=== PATIENT | female | born 1960 | race Caucasian/White ===

== ENCOUNTER 2019-05-19 20:28 | Inpatient (IN) | payer OTHER ==
[~2019-05-19] VITALS: Ht 160 cm; Wt 63.0 kg
--- NOTE | ~2019-05-19 | O ---
[facility] [place] [address] OPERATIVE REPORT Name: ALEX CHADWICK Room #: 444-P [facility] ..#: [id number] Admission: 05/19/19 Attend Phys: Denise Juarez MD Discharge: Date of : 58 Report #: [id number] THIS REPORT FOR: //name// CC: Denise Vásquez DATE OF SERVICE: 05/20/2019 PREOPERATIVE DIAGNOSIS: Right shoulder fracture dislocation. POSTOPERATIVE DIAGNOSIS: Right shoulder fracture dislocation. PROCEDURE: Right shoulder closed reduction under anesthesia. SURGEON: Dr. Jesse Zuñiga. FRONT DESK ASSISTANT: Minna Judd. ANESTHESIA: General. ESTIMATED BLOOD LOSS: Zero. DESCRIPTION OF PROCEDURE: The patient was brought to the operating room where she was placed under general anesthesia. Once under adequate general anesthesia, a reduction maneuver was performed on the right shoulder. Abduction and traction was placed on the shoulder. A reduction was then achieved. X-ray verification was used to note the reduction, was satisfactory with a humeral neck fracture and greater trochanteric fracture of the humerus. The patient was having wrist pain as well and wrist x-rays were taken also, which were negative. The patient was taken to recovery room without incident once the procedure was complete after being awoken from anesthesia. By: [id number] Jesse Zuñiga MD /nt
[2019-05-19 20:29] VITALS: BP 154/83
[2019-05-19] MEDS ORDERED: XARELTO10 MG PO (20:43)
[2019-05-19] MEDS ORDERED: INDERAL LA120 M1 PO (20:43)
[2019-05-19] MEDS ORDERED: FOLIC ACID1 MG PO (20:44)
[2019-05-19] MEDS ORDERED: LEVO-T25 MCG PO (20:44)
[2019-05-19 21:49] VITALS: BP 148/93
[2019-05-19 21:50] LABS: ABSOLUTE NEUTROPHILS 2.9 thou/uL (1.4-8.2); BASOPHILS 1.2 % (0.0-2.0); EOSINOPHILS 2.2 % (0.0-3.0); HEMATOCRIT 40.4 % (37.0-47.0); HEMOGLOBIN 13.4 gm/dL (12.0-15.0); MCH 33.6 pg (26.0-34.0); MCV 101.8 fL (80.0-100.0); MONOCYTES 9.5 % (1.0-8.0); PLATELET COUNT 307 thou/uL (150-400); POLYS 41.1 % (36.0-66.0); RBC 3.97 mil/uL (4.20-5.00); RDW 12.7 % (10.5-14.5)
[2019-05-19 21:52] LABS: CALCIUM 9.5 mg/dL (8.5-10.1); CREATININE 0.9 mg/dL (0.6-1.0); POTASSIUM 4.3 mmol/L (3.5-5.1)
[2019-05-19 22:18] VITALS: BP 145/85
[2019-05-19 22:30] VITALS: BP 141/77
--- NOTE | 2019-05-20 02:19 | NUR ---
PT TO UNIT AROUND 2229. ORIENTED TO UNIT, ROOM AND USE OF CALL LIGHT. ADMISSION ASSESSMENT COMPLETED. VSS. PT REPORTS PAIN 10/10 WITH LITTLE RELIEF FROM MEDS. APPEALS MANAGER UP TO SEE PT TONIGHT. ICE PACK APPLIED TO AFFECTED ARM. SCDS AND PROPER ARMBANDS APPLIED. PT VERY ANXIOUS ABOUT SURGERY, BUT VERY PLEASANT WOMAN. RESTING IN BED NOW WITH CALL LIGHT IN REACH.
[2019-05-20 04:10] VITALS: BP 112/67
[2019-05-20 06:18] LABS: HEMATOCRIT 38.9 % (37.0-47.0); HEMOGLOBIN 12.6 gm/dL (12.0-15.0); MCH 33.5 pg (26.0-34.0); MCHC 32.4 g/dL (28.0-37.0); MCV 103.5 fL (80.0-100.0); RBC 3.76 mil/uL (4.20-5.00); RDW 12.8 % (10.5-14.5); WBC 9.5 thou/uL (4.0-11.0)
[2019-05-20 06:26] LABS: INR 1.1; PROTIME 11.2 Seconds (9.3-11.4)
[2019-05-20 06:30] LABS: CALCIUM 8.3 mg/dL (8.5-10.1); CREATININE 0.7 mg/dL (0.6-1.0); POTASSIUM 4.6 mmol/L (3.5-5.1)
[2019-05-20 07:40] VITALS: BP 140/80
[2019-05-20] MEDS ORDERED: ANORO ELLIPTA1 EACH (07:46)
--- NOTE | 2019-05-20 08:55 | HC ---
[facility] [place] [address] CONSULTATION Name: FARRUKHROSEMARY SHARMALY Héctor Room #: 444-P ADM IN M.R.#: [id number] Admission: 05/19/19 Attend Phys: Denise Juarez MD Discharge: Date of : 58 Report #: [id number] THIS REPORT FOR: //name// CC: Denise Vásquez CHIEF COMPLAINT: Right shoulder fracture dislocation. HISTORY OF PRESENT ILLNESS: This is a 58-year-old patient with a history of falling last evening stepping off of her front porch, landing on her right side. She had significant pain in her right shoulder and upper extremity right afterwards and was then brought to the Emergency Room where she was determined to have a right shoulder fracture dislocation. PAST MEDICAL HISTORY: Significant for pulmonary embolism for which she takes Xarelto, Graves' disease, and osteoporosis. ALLERGIES: None. PAST SURGICAL HISTORY: Significant for a parathyroidectomy. SOCIAL HISTORY: Negative for tobacco use. Significant for alcohol use. MEDICATIONS: Please see the MAR in the computer. ALLERGIES: None. PHYSICAL EXAMINATION: VITAL SIGNS: Notes a temperature of 98.3, pulse is 79, respiratory rate is 18. EXTREMITIES: Examination of the right upper extremity notes significant pain with any range of motion through the shoulder. She is neurovascularly intact distally. She has good capillary refill. Motor is grossly intact distally. LABORATORY STUDIES: X-rays note a right shoulder fracture dislocation with a humeral neck fracture and a greater trochanter fracture. This was corroborated on the CT scan. IMPRESSION: Right shoulder fracture dislocation. PLAN: The risks, benefits, alternatives, complications were discussed at length. At this point, we will proceed with a closed reduction of the right shoulder under anesthesia with a repeat CT scan to evaluate for further possible surgical management. <ELECTRONICALLY SIGNED> By: Jesse Zuñiga MD 05/20/19 0855 0722 0729 Jesse Zuñiga MD /nt
--- NOTE | 2019-05-20 10:33 | NUR ---
PT A&O, VSS, PAIN IN RIGHT SHOULDER. PATIENT HAD CLOSED SHOULDER REDUCTION TODAY. IV REMAINS IN LEFT AC AND PATENT. RIGHT ARM IN SHOULDER IMMOBILIZER. NO SIGNS OF DISTRESS. WILL CONTINUE TO MONITOR.
--- NOTE | 2019-05-20 15:42 | NUR ---
INITIAL ASSESSMENT: Pt evaluated for d/c planning needs. Reviewed chart and spoke with nurse, pt and pt's daughter. Pt is alert and oriented. Pt lives in house with spouse and was independent with ADL's prior to admission to the hospital. Pt is employed outside the home and is driving. Pt uses no DME and has not had home health in the past. Pt plans on returning home on d/c with assistance from her daughter. Will remain available to assist as needed.
[2019-05-20 19:28] VITALS: BP 117/62
--- NOTE | 2019-05-21 04:28 | NUR ---
ASSESSED AT START OF SHIFT A&OX4. RT SHOULDER IMMOBILIZER INTACT. PT C/O OF PAIN. MEDS GIVEN AND PARTIAL RELIEF GOTTEN. IV INTACT AND SALINE LOCK. CALL LIGHT AND PERSONAL ITEM WITHIN REACH AND WILL CONT WITH POC TILL EOS.
[2019-05-21 04:35] VITALS: BP 112/66
[2019-05-21] MEDS ORDERED: NORCO 7.5-3251 EACH PO (10:37)
[2019-05-21 13:43] VITALS: BP 112/66
--- NOTE | 2019-05-21 14:48 | NUR ---
DC ORDERS RECEIVED. PT/OT AND ORTHO HAVE CLEARED PT TO DISCHARGE. IV REMOVED FROM L AC. DC INSTRUCTIONS/ F/U APPOINTMENT AND SCRIPT REVIEWED WITH PT. VOLUNTEER ESCORTED PT BY SINDY.
[2019-05-21 15:00] VITALS: BP 112/66
[2019-05-21 16:41] VITALS: BP 112/66
--- NOTE | 2019-05-21 17:28 | NUR ---
DISCUSSED HH SERVICES WITH PT AND INITIALLY SHE WAS HESITANT TO ACCEPT BUT AGREED AFTER OT DOREEN S/W HER. OFFERED OPTIONS AND REFERRAL FAXED TO [facility] AND S/W INTAKE WHO S/W ELIEZER AND THEY WILL SEE ARACELI. PT ANXIOUS TO GO HOME THIS AFTERNOON.
== END 2019-05-21 16:37 | disposition home health service (06) | DRG 563 ==
LOC: ER 20:28 → 4S 21:10 → EROBS 21:10 → 4S 22:22 → ENTRNSPT 05-21 14:27 → EDTRNSPTSTS 05-21 14:29 → 4S 05-21 16:37
PROVIDERS: Emergency Medicine; Nurse Practitioner Family; ADMIT Hospitalist
PROC: 0PSCXZZ Reposition Right Humeral Head, External Approach (ICD-10-PCS; principal; 2019-05-20)
DX: S42.91XA Fracture of right shoulder girdle, part unspecified, initial encounter for closed fracture (principal); E89.2 Postprocedural hypoparathyroidism; W01.0XXA Fall on same level from slipping, tripping and stumbling without subsequent striking against object, initial encounter; E05.00 Thyrotoxicosis with diffuse goiter without thyrotoxic crisis or storm; M81.0 Age-related osteoporosis without current pathological fracture; Y99.8 Other external cause status; Z86.711 Personal history of pulmonary embolism; Z79.01 Long term (current) use of anticoagulants; Y92.89 Other specified places as the place of occurrence of the external cause; Y93.89 Activity, other specified; Z79.899 Other long term (current) drug therapy
CPT/HCPCS: 10195; 50010; 50101; 62110; 62900; 70005

== ENCOUNTER 2019-05-29 08:54 | Observation (INO) | payer OTHER ==
[~2019-05-29] VITALS: Ht 160 cm; Wt 60.3 kg
--- NOTE | ~2019-05-29 | O ---
[facility] [place] [address] OPERATIVE REPORT Name: ALEX CHADWICK Room #: 437-P [facility] Raul#: [id number] Admission: 05/29/19 Attend Phys: Les Cabrera Discharge: Date of : 58 Report #: [id number] THIS REPORT FOR: //name// CC: Les Vásquez DATE OF SERVICE: 05/29/2019 PREOPERATIVE DIAGNOSES: Right proximal humeral fracture dislocation, 3 part. POSTOPERATIVE DIAGNOSES: Right proximal humeral fracture dislocation, 3 part. PROCEDURE PERFORMED: Open reduction and internal fixation of right proximal humerus fracture with allograft bone grafting. SURGEON: Les Chandra MD. METER REPAIRER: rTan Persaud PA-C. ANESTHESIA: General. FLUIDS: 1300 mL crystalloid. ESTIMATED BLOOD LOSS: Approximately 50 mL. IMPLANTS UTILIZED: Synthes proximal humeral locking plate. DESCRIPTION OF PROCEDURE: After proper identification of the patient and operative site in preoperative holding area, the operative site was signed by myself, prophylactic antibiotics given. The patient discussed interscalene block with anesthesia. After discussing the potential treatment options, the patient elected to proceed with the above. She was brought back to the operative suite after induction of satisfactory general anesthesia. She was carefully positioned in beach chair position with head of bed elevated approximately 40 degrees. The right shoulder was sterilely prepped and draped in usual manner and placed within a [employer] spider limb positioning system. Extensive arm and chest ecchymosis was noted. There was mild soft tissue swelling, but this was amenable to operative intervention. Anterior deltopectoral approach was planned. Final skin draping was with Ioban. After time-out, an incision was made. Full thickness skin flaps were developed. Cephalic vein was identified and retracted laterally. Subdeltoid space was freed bluntly and a radiolucent deltoid retractor was utilized. There was a fracture, but just started lateral to the bicipital groove and involved the lesser tuberosity piece, #2 FiberWire was used to grasp this and then a comminuted greater trochanter fracture was noted, which was from the displaced head fracture. At this point, the head was reduced to the shaft. The [address] [address] OPERATIVE REPORT Name: ALEX CHADWICK Room #: 437-P [facility] Flori Carter#: [id number] Admission: 05/29/19 Attend Phys: Les Cabrera Discharge: Date of : 58 Report #: [id number] FiberWire sutures were used on both of the tuberosities and there was a satisfactory alignment in this area, was bone grafted with 30 mL of cancellous cubes. This was packed into the void and impacted with a punch and then the tuberosities were closed around this and a Synthes proximal humeral plate was provisionally secured with 2 K-wires and then a cortical screw. Next, 4 proximal locking screws were placed in the humeral head. The head was rotated in various planes to ensure that these were extraarticular. Two additional locking screws were placed distally, the tuberosities had also the sutures been passed through the plate and tied to this for supplemental fixation. The entire construct rotated and seemed stable with gentle motion. Implant images in the AP and lateral plane were obtained and the shoulder was reduced, although the two images printed showed some mild inferior subluxation which I think was more due to the positioning of the [employer], but this was reduced nicely at the end of the procedure, the wound had been irrigated with antibiotic irrigant. There was satisfactory hardware and fracture position and 1 gram vancomycin powder was utilized, half at deep, half at more superficial. Deltopectoral interval was closed with 0 Vicryl, 2-0 Vicryl for the subcutaneous tissues, final skin closure with running Monocryl stitch and sealed with Dermabond. Sterile dressing was applied. She was placed in a shoulder immobilizer per her request, which will likely be utilized for approximately 4 weeks. Qualified ob gyn physician assistant utilized throughout the entire procedure to aid in patient limb positioning, visualization and retraction of soft tissues, closure and sling and dressing application. By: 1232 [id number] Les Chandra MD /jerry
[~2019-05-29 08:54] MED LIST: ANORO ELLIPTA1 EACH INH; CALCIUM + VITA1 EACH PO; FOLIC ACID1 MG PO; INDERAL LA120 M1 PO; LEVO-T25 MCG PO; NORCO 7.5-3251 EACH PO; PROAIR HFA8.5 GM INH; XARELTO10 MG PO
[2019-05-29 09:54] VITALS: BP 157/62
--- NOTE | 2019-05-29 14:25 | NUR ---
PT ARRIVED ON UNIT AT 1335, ALERT XS4. NO PAIN AT PRESENT. DIET CLEAR WILL ADVANCE. V.S. 97.8 19, 61 135/73 O2 SAT 93% RA. PT HAS SLING TO RIGHT SHOULDER/HAND. PT WALKED TO BATHROOM. HAS POLAR PACK. PT PLEASANT AND COOPERATIVE WITH CARE.
--- NOTE | 2019-05-29 16:43 | NUR ---
INITIAL ASSESSMENT: Pt evaluated for d/c planning needs. Reviewed chart. Pt was hospitalized earlier this month. Pt is alert and oriented. Pt lives in house with spouse and was independent with ADL's prior to admission to the hospital. Pt is employed outside the home and is driving. Pt uses no DME and was sent home on [employer] home health. Pt plans on returning home on d/c with assistance from her daughter. Will remain available to assist as needed.
[2019-05-29 20:45] VITALS: BP 99/79
[2019-05-30 00:30] VITALS: BP 96/59
--- NOTE | 2019-05-30 04:58 | NUR ---
ASSESSED AT START OF SHIFT PT A&OX4. PAIN MEDS GIVEN FOR CONTROL SEE EMAR. CONCERNED ABOUT LOW BP OF 99/79 ENCOURAGED PO FLUIDS INTAKE. IV INTACT AND LR INFUISING @80/HR. PT AD CODEY TO THE BATHROOM. POLAR PACK AND SCD INTACT. WILL CONT WITH POC TILL EOS.
[2019-05-30 04:59] VITALS: BP 114/62
[2019-05-30 06:11] LABS: HEMATOCRIT 27.4 % (37.0-47.0); HEMOGLOBIN 8.9 gm/dL (12.0-15.0)
[2019-05-30 06:20] LABS: POTASSIUM 4.6 mmol/L (3.5-5.1)
[2019-05-30 07:37] VITALS: BP 98/59
--- NOTE | 2019-05-30 07:41 | NUR ---
PT IN ROOM WATCHING TV. POLAR PACK TO SHOULDER. NO PAIN AT PRESENT PT TO DISCHARGE TODAY.
--- NOTE | 2019-05-30 09:11 | NUR ---
ORDERS FOR EVAL AND TREAT. Pt FAMILIAR TO THIS THERAPIST SHE WAS EVALUATED WHEN SHE ORIGINALLY HAD THE INJURY TO RT SHOULDER. Pt STATES SHE HAS BEED UP TO THE BATHROOM WITHOUT DIFFICULTY AND IS JUST SORE. DECLINING ANOTHER FORMAL P.T. EVAL STATING SHE IS MOVING JUST LIKE LAST TIME. Pt TO DISCHARGE HOME TODAY. WILL DEFER TO O.T. THE RT ELBOW/WRIST ROM AND ADL'S
[2019-05-30 10:22] VITALS: BP 98/59
[2019-05-30 10:32] VITALS: BP 98/59
[2019-05-30 14:08] VITALS: BP 98/59
--- NOTE | 2019-05-30 14:49 | NUR ---
DISCHARGE PAPERS GONE OVER WITH PATIENT. SIGNED AND COPY IN CHART. IV ACSESS DCD. ALL BELONGINGS INCLUDING POLAR PACK SENT WITH PATIENT. PT TO [facility] AT [facility] ON [address]. SPOUSE HERE TO TRANSPORT PATIENT. SENT ORTHO FOLDER WITH PATIENT. PT GIVEN PRN PAIN MED BEFORE DISCHARGE.
--- NOTE | 2019-05-30 15:08 | NUR ---
CARE TEAM ORDERED HOME HEALTH SERVICES. PT HAD BEEN ON SERVICE WITH [facility] AND WISHED TO RESUME SERVICES WITH THEM UPON [place]. REFERRAL AND ORDERS WERE SENT AND RECIEVED BY [facility]. THEY ARE TO PROVIDE SERVIES TO PT UPON [place]. NO OTHER CM INTERVENTION INDICATED. CASE CLOSED.
== END 2019-05-30 14:50 | disposition home health service (06) ==
LOC: OR 08:54 → TBA 08:56 → OR 09:58 → 4S 14:00 → OR 14:00 → ENTRNSPT 05-30 14:14 → EDTRNSPTSTS 05-30 14:32 → 4S 05-30 14:50
PROVIDERS: Physician Assistant Surgical; ADMIT Orthopaedic Surgery Sports Medicine
DX: S42.201A Unspecified fracture of upper end of right humerus, initial encounter for closed fracture (principal); X58.XXXA Exposure to other specified factors, initial encounter; Y93.89 Activity, other specified; Y92.89 Other specified places as the place of occurrence of the external cause; Y99.8 Other external cause status
CPT/HCPCS: 50010; 50101; 50172; 50386; 50417; 50697; 50733; 51320; 52001; 52282; 53078; 53170; 54118; 56521; 56525; 56527; 56530; 57103; 62110; 62900; 64039; 70005

== ENCOUNTER 2021-04-18 20:43 | Emergency (ER) | payer OTHER ==
[~2021-04-18] VITALS: Ht 160 cm; Wt 54.4 kg
--- NOTE | ~2021-04-18 | EMS ---
[address] [address] EMS Patient Care Report Name: ALEX CHADWICK Room #: DEP HE Carter#: [id number] Admission: 04/18/21 Attend Phys: Discharge: 04/19/21 Date of : 58 Report #: [id number] THIS REPORT FOR: //name// Report Transmitted: 04/20/2021 08:08 EMS Care Summary [place], [place] Incident [id number] @ 04/18/2021 20:07 Incident Location [address] [place] [id number] Patient ALEX CHADWICK Female, 60 Years 1960 Patient Address [id number] [place] [address] Patient History None Reported, Patient Allergies No known allergies, Patient Medications None Reported, Chief Complaint none Disposition Transported No Lights/[place] Dispatch Reason Sick Person Transported To [facility] Narrative Dispatched to a recovery center in regards to a sick. On arrival, I saw patient sitting upright in bed talking to the on scene fire crew. Initial assessment [address] [address] EMS Patient Care Report Name: ALEX CHADWICK [facility] [id number] Admission: 04/18/21 Attend Phys: Discharge: 04/19/21 Date of : 58 Report #: [id number] revealed that patient was A&Ox4 and did not appear to be in respiratory distress. Patient did not have any complaints. Fire crew on scene stated that patient had an episode in which her blood pressure was low and patient was altered. Patient stated that she was sleeping and she woke up to staff telling her she needs to go to the hospital. Patient stated that she went to bed around 1700 hours shortly after dinner. Patient was able to ambulate with assistance to our cot. Patient was secured and lifted into the ambulance. Treatment rendered was obtaining a complete set of baseline vital signs including 3 lead ECG monitoring. Patient was transported to [facility] and radio report was given en route. Patient care was transferred on arrival. Initial Vitals @20:23P: 74,R: 16,BP: 112/77,Pain: 0/10,GCS: 15,SpO2: 93,Revised Trauma: 12, @20:26P: 75,R: 16,BP: 100/53,Pain: 0/10,GCS: 15,SpO2: 93,Revised Trauma: 12, Assessments @20:26MENTAL:Place Oriented,Time Oriented,Person Oriented,Event Oriented,SKIN:HEENT:LUNG SOUNDS:ABDOMEN:PELVIS//GI:EXTREMITIES:PULSE:NEURO:No Abnormalities, Impression Altitude Sickness Procedures @20:26 ALS Assessment Response: UnchangedSucceeded @20:46 3-Lead ECG Response: UnchangedSucceeded Timeline 20:04,Call Received 20:04,Dispatch Notified 20:07,Dispatched 20:08,En Route 20:16,On Scene 20:17,At Patient 20:23,BP: 112/77 M,PULSE: 74,RR: 16 R,SPO2: 93 Ox,ETCO2: ,BG: ,PAIN: 0,GCS: 15, 20:26,ALS Assessment,Response: UnchangedSucceeded, 20:26,BP: 100/53 M,PULSE: 75,RR: 16 R,SPO2: 93 Ox,ETCO2: ,BG: ,PAIN: 0,GCS: 15, 20:27,Depart Scene 20:37,At Destination 20:46,3-Lead ECG,Response: UnchangedSucceeded, 21:00,Call Closed Disclaimer v1.1 Copyright 2020 [employer] This EMS Care Summary contains data elements from the applicable legal record [address] [address] EMS Patient Care Report Name: FARRUKHALEX Héctor [facility] [id number] Admission: 04/18/21 Attend Phys: Discharge: 04/19/21 Date of : 58 Report #: [id number] (which may be displayed differently). It is designed to provide pertinent information for the following purposes: continuity of care, clinical quality, and state data reporting. The complete legal record is available to ED staff and administrators of the receiving hospital in [employer] Patient Tracker. All data is provided "as is."
[2021-04-19 00:14] LABS: ABSOLUTE NEUTROPHILS 3.7 thou/uL (1.4-8.2); BASOPHILS 0.5 % (0.0-2.0); EOSINOPHILS 1.5 % (0.0-3.0); HEMATOCRIT 35.8 % (37.0-47.0); HEMOGLOBIN 11.7 gm/dL (12.0-15.0); LYMPHOCYTES 22.5 % (24.0-44.0); MCHC 32.6 g/dL (28.0-37.0); MCV 110.6 fL (80.0-100.0); MONOCYTES 13.8 % (1.0-8.0); PLATELET COUNT 246 thou/uL (150-400); POLYS 61.7 % (36.0-66.0); RBC 3.24 mil/uL (4.20-5.00); RDW 14.4 % (10.5-14.5)
[2021-04-19 00:22] LABS: CALCIUM 8.8 mg/dL (8.5-10.1); CREATININE 0.8 mg/dL (0.6-1.0)
[2021-04-19 00:28] LABS: ALBUMIN 2.6 g/dL (3.4-5.0); TOTAL BILIRUBIN 0.2 mg/dL (0.2-1.0); TOTAL PROTEIN 5.8 g/dL (6.4-8.2)
[2021-04-19 01:21] LABS: MACROCYTES 3+
[2021-04-19 01:36] LABS: URINE BILIRUBIN NEGATIVE (Negative); URINE BLOOD NEGATIVE (Negative); URINE CLARITY SL CLOUDY; URINE COLOR YELLOW; URINE GLUCOSE-RANDOM* NEGATIVE (Negative); URINE KETONES NEGATIVE (Negative); URINE LEUKOCYTES-REFLEX NEGATIVE (Negative); URINE PROTEIN (DIPSTICK) 1+ (Negative); URINE SPECIFIC GRAVITY 1.025 (1.005-1.035); URINE UROBILINOGEN 0.2 E.U./dl (0.2-1.0)
[2021-04-19 01:50] LABS: URINE NITRITE-REFLEX POSITIVE (Negative)
[2021-04-19 02:01] LABS: BACTERIA-REFLEX >30 Many /HPF (None Seen); CRYSTALS None Seen /LPF (None Seen); HYALINE CASTS 0-3 Few /LPF (None Seen); MUCUS 0-3 Light strn/LPF (None Seen); SQUAMOUS 4-10 Moderate /LPF (0-3); URINE RBC 1-2 Rare /HPF (NONE SEEN)
[2021-04-19 02:02] LABS: URINE WBC-REFLEX 0-5 Rare /HPF (0-5)
[2021-04-19] MEDS ORDERED: CEPHALEXIN500 MG PO ×2 (04:47→10:28)
--- NOTE | 2021-04-19 07:15 | EKG ---
[place] [address] [address] [employer] [employer] [place] [address] ELECTROCARDIOGRAM REPORT Name: ALEX CHADWICK [facility] [id number] Admission: 04/18/21 Attend Phys: Discharge: Date of : 58 Report #: [id number] [facility] ED Test Date: 2021-04-19 Test Time: 00:33:30 Pat Name: ALEX CHADWICK Department: Room: Gender: F Network Design Architect: harmeet : 1960 Requested By: Sanya Philip Order Number: [id number] MD: Vitaliy Aquino Measurements Intervals [place] Rate: 66 P: 71 GA: 132 QRS: 84 QRSD: 95 T: 79 QT: 412 QTc: 432 Interpretive Statements Sinus rhythm Anteroseptal infarct, age indeterminate Baseline wander in lead(s) V5 No previous ECG available for comparison Electronically Signed On 04-19-2021 7:14:55 DRUM TESTER by Vitaliy Aquino [email or web address] <ELECTRONICALLY SIGNED> By: Vitaliy Aquino MD, [facility] 04/19/21 0714 0033 0033 Vitaliy Aquino MD, FACC /EPI
[2021-04-19 07:57] VITALS: BP 117/75
== END 2021-04-19 07:57 ==
LOC: ER 20:43
PROVIDERS: Emergency Medicine
DX: R40.0 Somnolence (principal); J44.9 Chronic obstructive pulmonary disease, unspecified; Z79.899 Other long term (current) drug therapy